=== PATIENT | male | born 1955 | race Caucasian/White ===

== ENCOUNTER 2023-07-08 08:27 | Outpatient (CLI) | payer MEDICARE ==
[2023-07-08 09:20] LABS: Anion Gap 14 mmol/L (10-20); BUN (Urea Nitrogen) 8 mg/dL (8.4-25.7); Calc. Creatinine Clearance 0 mL/min (70-130); Calcium 9.3 mg/dL (7.8-10.44); Carbon Dioxide 26 mmol/L (23-31); Chloride 105 mmol/L (98-107); Estimated GFR 92; Glucose 99 mg/dL (80-115); Potassium 5.1 mmol/L (3.5-5.1); Sodium 140 mmol/L (136-145)
[2023-07-08 10:31] LABS: #Basophils 0.1 10x3/uL (0.0-0.2); #Eosinphils 0.4 10x3/uL (0.0-0.5); #Monocytes 0.9 10x3/uL (0.0-1.1); #Neutrophils 4.8 10x3/uL (1.5-8.4); %Basophils 0.6 % (0.0-2.0); %Lymphocytes 31.7 % (18.0-47.0); %Monocytes 10.4 % (0.0-10.0); Hematocrit 47.6 % (38.8-50.0); Hemoglobin 15.4 g/dL (13.5-17.5); Mean Corpuscular HGB CONC 32.4 g/dL (32.0-36.0); Mean Corpuscular Hemoglobin 29.2 pg (27.0-33.0); Mean Corpuscular Volume 90.2 fl (81.2-95.1); Mean Platelet Volume 9.5 fl (7.4-10.4); Platelet Count 329 10x3/uL (150-450); Red Blood Cell (RBC) Count 5.28 10x6/uL (4.32-5.72)
== END 2023-07-08 08:28 | disposition home or self-care (01) ==
LOC: LABBT 08:27
PROVIDERS: ATTEND Orthopaedic Surgery
DX: Z01.818 Encounter for other preprocedural examination (principal); M75.111 Incomplete rotator cuff tear or rupture of right shoulder, not specified as traumatic
CPT/HCPCS: 80048; 85025; 93005; 93010

== ENCOUNTER 2023-07-13 08:38 | Day surgery (SDC) | payer OTHER ==
[2023-07-08 08:53] VITALS: BMI 42.0
[2023-07-13] MEDS ORDERED: CEFAZOLIN 2 GM VIAL ONE (09:42)
[2023-07-13] MEDS ORDERED: Sodium Chloride 0.9% 100 ML ONE (09:42)
[2023-07-13] MEDS ORDERED: fentaNYL 50 mcg/mL 1 mL Vial ONE (10:40)
[2023-07-13] MEDS ORDERED: Midazolam HCl 2 mg/2 ml Vial ONE (10:40)
[2023-07-13] MEDS ORDERED: Ropivacaine 0.2% HCl/PF 20 ML ONE (10:41)
[2023-07-13] MEDS ORDERED: Ropivacaine 0.5% HCl/PF (150 MG/30 ML VIAL) ONE (10:41)
[2023-07-13] MEDS ORDERED: Acetaminophen 500 MG TAB ONE (11:00)
[2023-07-13] MEDS ORDERED: Promethazine HCl 25 MG/ML VIAL IM PRN (11:15)
[2023-07-13] MEDS ORDERED: Ondansetron PF 4 MG/2 ML Vial IVP PRN (11:15)
[2023-07-13] MEDS ORDERED: traMADol HCl 50 MG TAB PO PRN ×2 (11:15)
[2023-07-13] MEDS ORDERED: HYDROcodone/Acetaminophen 5/325 mg Tablet PO PRN ×2 (11:15)
[2023-07-13] MEDS ORDERED: Zolpidem Tartrate 5 MG TAB PO PRN (11:15)
[2023-07-13] MEDS ORDERED: Ropivacaine 0.2% 550 ML 550 ML NERVE BLCK SCH (11:15)
[2023-07-13] MEDS ORDERED: fentaNYL PF 100 MCG/2 ML SYRINGE ONE (11:58)
[2023-07-13] MEDS ORDERED: Ketorolac Tromethamine 30 MG/ML VIAL IVP SCH (12:00)
[2023-07-13] MEDS ORDERED: Lidocaine 1% (PF) 30 ML VIAL ONE (12:01)
[2023-07-13] MEDS ORDERED: EPINEPHrine 1 MG/ML AMP ONE (12:01)
[2023-07-13] MEDS ORDERED: Rocuronium Bromide 10 MG/ML (10ML VIAL) ONE (12:34)
[2023-07-13] MEDS ORDERED: Lidocaine 1% PF 5 ML VIAL ONE (12:34)
[2023-07-13] MEDS ORDERED: Ondansetron PF 4 MG/2 ML Vial ONE (12:34)
[2023-07-13] MEDS ORDERED: PROPOFOL 200 MG/20 ML VIAL ONE (12:34)
[2023-07-13] MEDS ORDERED: ePHEDrine Sulfate 50 MG/10 ML VIAL ONE ×2 (12:34→13:05)
[2023-07-13] MEDS ORDERED: Dexamethasone 20 MG/5 ML VIAL ONE (12:34)
[2023-07-13] MEDS ORDERED: SUGAMMADEX SODIUM 200 MG/2 ML VIAL ONE (13:39)
[2023-07-13] MEDS ORDERED: Norepinephrine 4 MG/4 ML VIAL ONE (13:43)
== END 2023-07-13 16:30 | disposition home or self-care (01) ==
LOC: SDC 08:38
PROVIDERS: ATTEND Orthopaedic Surgery
PROC: 0RNJ4ZZ Release Right Shoulder Joint, Percutaneous Endoscopic Approach (ICD-10-PCS; principal; 2023-07-13)
PROC: 0LS30ZZ Reposition Right Upper Arm Tendon, Open Approach (ICD-10-PCS; principal; 2023-07-13)
DX: S43.431A Superior glenoid labrum lesion of right shoulder, initial encounter (principal); S46.211A Strain of muscle, fascia and tendon of other parts of biceps, right arm, initial encounter; M25.811 Other specified joint disorders, right shoulder; E78.00 Pure hypercholesterolemia, unspecified; M19.90 Unspecified osteoarthritis, unspecified site; Z87.891 Personal history of nicotine dependence; X58.XXXA Exposure to other specified factors, initial encounter
CPT/HCPCS: A4306; C1713; J0171; J1100; J2001; J2250; J2405; J2704; J2795; J3010; J3490